=== PATIENT | male | born 1985 | race Caucasian/White ===

== ENCOUNTER 2022-09-25 03:16 | Emergency (ER) | payer OTHER ==
[~2022-09-25] VITALS: Ht 190.5 cm; Wt 163.0 kg
[2022-09-25] MEDS ORDERED: cefTRIAXone SOD 1,000 MG VL IM ONE (03:30)
[2022-09-25] MEDS ORDERED: DexAMETHasone SOD PHOS 10MG/1ML VIAL INJ IM ONE (03:30)
[2022-09-25 05:00] VITALS: BP 128/91
[2022-09-25] MEDS ORDERED: AMOX500T86 PO (05:24)
[2022-09-26] MEDS ORDERED: PROM2SYP2 PO ×5 (09:52→16:51)
[2022-09-26] MEDS ORDERED: AZIT500T66 PO ×4 (09:52→16:51)
[2022-09-26] MEDS ORDERED: PROM1SOL4 PO (17:58)
== END 2022-09-25 05:45 | disposition home or self-care (01) ==
LOC: ER 03:16
DX: J02.9 Acute pharyngitis, unspecified (principal); F17.210 Nicotine dependence, cigarettes, uncomplicated
CPT/HCPCS: 71045; 96372; 99284; J0696; J1100

== ENCOUNTER 2022-09-26 08:07 | Emergency (ER) | payer OTHER ==
[~2022-09-26] VITALS: Ht 190.5 cm; Wt 163.0 kg
[~2022-09-26 08:07] MED LIST: AMOX500T86 PO
[2022-09-26 08:33] VITALS: BP 144/55
[2022-09-26] MEDS ORDERED: KETOROLAC TROMETH 30 MG/ML 1ML VIAL IV ONE (08:45)
[2022-09-26] MEDS ORDERED: cefTRIAXone SOD 1,000 MG VL IM ONE (08:45)
[2022-09-26] MEDS ORDERED: SODIUM CHLORIDE 0.9% 500 ML IV ONE (08:45)
[2022-09-26] MEDS ORDERED: methylPREDNISolone SOD SUCC 125 MG/2 ML VL IV ONE (08:45)
[2022-09-26 09:14] LABS: Basophils # (auto) 0.1 10 ^3/uL (0-0.2); Eosinophils # (auto) 0.1 10 ^3/uL (0-0.8); Eosinophils % (auto) 0.5 % (0.0-7.0); Hematocrit 46.7 % (41.0-53.0); Hemoglobin 16.2 g/dL (13.5-17.5); Lymphocytes # (auto) 3.1 10 ^3/uL (0.4-5.4); Lymphocytes % (auto) 27.5 % (10.0-50.0); Mean Corpuscular Hemoglobin 30.1 pg (28.0-32.0); Mean Corpuscular Hgb Conc. 34.6 g/dL (32.0-36.0); Mean Corpuscular Volume 86.8 fL (80.0-100.0); Monocytes # (auto) 1.1 10 ^3/uL (0-1.3); Neutrophils # (auto) 6.9 10 ^3/uL (1.6-8.6); Nucleated Red Blood Cells % 0.1 %; Red Blood Cells 5.38 10^6/uL (4.5-5.90); Red Cell Distribution Width 14.6 % (11.8-14.3); White Blood Cell 11.3 10^3/uL (4.4-10.8)
[2022-09-26 09:35] LABS: BUN/Creatinine Ratio 10.8; Calcium 8.6 mg/dL (8.5-10.1); Potassium 3.3 mmol/L (3.5-5.1)
[2022-09-26] MEDS ORDERED: PROMETHAZINE W/CODEINE 5 ML ORAL SYRUP PO ONE (09:45)
[2022-09-26] MEDS ORDERED: PROM2SYP2 PO ×5 (09:52→16:51)
[2022-09-26] MEDS ORDERED: AZIT500T66 PO ×4 (09:52→16:51)
[2022-09-26] MEDS ORDERED: PROM1SOL4 PO (17:58)
== END 2022-09-26 10:07 | disposition home or self-care (01) ==
LOC: ER 08:07
DX: J20.9 Acute bronchitis, unspecified (principal); J03.90 Acute tonsillitis, unspecified; E66.01 Morbid (severe) obesity due to excess calories; Z68.41 Body mass index [BMI] 40.0-44.9, adult
CPT/HCPCS: 36415; 80048; 85025; 86308; 87070; 87880; 96361; 96372; 96374; 96375; 99284; J0696; J1885; J2930; J7040

== ENCOUNTER 2022-10-25 23:06 | Emergency (ER) | payer OTHER ==
[~2022-10-25] VITALS: Ht 190.5 cm; Wt 158.7 kg
[~2022-10-25 23:06] MED LIST changes: +AZIT500T66 PO; +PROM1SOL4 PO
[2022-10-26] MEDS ORDERED: HYDROcodone-ACET 10/325MG TAB PO ONE (06:00)
[2022-10-26] MEDS ORDERED: HYDR-4902 PO (06:31)
[2022-10-26 06:42] VITALS: BP 123/62
== END 2022-10-26 06:44 | disposition home or self-care (01) ==
LOC: ER 23:06
DX: S82.492A Other fracture of shaft of left fibula, initial encounter for closed fracture (principal); Z88.0 Allergy status to penicillin; S93.402A Sprain of unspecified ligament of left ankle, initial encounter; X50.0XXA Overexertion from strenuous movement or load, initial encounter; Y93.67 Activity, basketball; Y92.89 Other specified places as the place of occurrence of the external cause; Y99.8 Other external cause status
CPT/HCPCS: 73610

== ENCOUNTER 2023-01-03 00:27 | Emergency (ER) | payer OTHER ==
[~2023-01-03] VITALS: Ht 190.5 cm; Wt 157.3 kg
[~2023-01-03 00:27] MED LIST changes: +HYDR-4902 PO
[2023-01-03] MEDS ORDERED: ASPirin 81 mg TAB PO ONE (01:00)
[2023-01-03 01:22] LABS: Urine Bacteria NONE SEEN /hpf (None Seen); Urine Blood Negative /uL (Negative); Urine Specific Gravity 1.016 (1.001-1.035); Urine WBC 1 /hpf (0 - 3)
[2023-01-03 01:36] LABS: Alcohol, Urine < 3.0 mg/dL (0-10); Amphetamine Screen, Urine NEGATIVE (NEGATIVE); Barbiturate Scree,Urine NEGATIVE (NEGATIVE); Benzodiazephine Screen, Urine NEGATIVE (NEGATIVE); Cannabinoid Screen, Urine NEGATIVE (NEGATIVE); Cocaine Screen, Urine NEGATIVE (NEGATIVE); Opiate Scree,Urine NEGATIVE (NEGATIVE); Phencyclidine Screen, Urine NEGATIVE (NEGATIVE)
[2023-01-03 01:47] LABS: Basophils # (auto) 0.1 10 ^3/uL (0-0.2); Eosinophils # (auto) 0.3 10 ^3/uL (0-0.8); Eosinophils % (auto) 5.1 % (0.0-7.0); Hematocrit 48.6 % (41.0-53.0); Hemoglobin 16.9 g/dL (13.5-17.5); Lymphocytes # (auto) 1.9 10 ^3/uL (0.4-5.4); Mean Corpuscular Hemoglobin 30.3 pg (28.0-32.0); Mean Corpuscular Hgb Conc. 34.7 g/dL (32.0-36.0); Mean Corpuscular Volume 87.3 fL (80.0-100.0); Monocytes # (auto) 0.5 10 ^3/uL (0-1.3); Neutrophils # (auto) 3.3 10 ^3/uL (1.6-8.6); Neutrophils % (auto) 53.9 % (37.0-80.0); Nucleated Red Blood Cells % 0.2 %; Red Blood Cells 5.57 10^6/uL (4.5-5.90); Red Cell Distribution Width 14.3 % (11.8-14.3); White Blood Cell 6.1 10^3/uL (4.4-10.8)
[2023-01-03 01:52] LABS: BUN/Creatinine Ratio 8.3 (10.0-20.0); Calcium 9.1 mg/dL (8.5-10.1); Magnesium 2.3 mg/dL (1.6-2.6); Potassium 4.1 mmol/L (3.5-5.1)
[2023-01-03 01:55] LABS: Bilirubin, Total 0.4 mg/dL (0.2-1.0); Total Protein 7.2 g/dL (6.4-8.2)
[2023-01-03 02:06] LABS: INR 0.91 (0.9-1.15); Partial Thromboplastin Time 29.1 sec (24.6-33.4)
[2023-01-03 04:37] VITALS: BP 135/91
[2023-01-03] MEDS ORDERED: ACET-6 PO (04:48)
== END 2023-01-03 04:59 | disposition home or self-care (01) ==
LOC: ER 00:27
DX: R07.2 Precordial pain (principal); R06.02 Shortness of breath; F41.9 Anxiety disorder, unspecified; I10 Essential (primary) hypertension
CPT/HCPCS: 36415; 71045; 80053; 80307; 81001; 83605; 83690; 83735; 83880; 84484; 85025; 85379; 85610; 85730; 87040; 93005

== ENCOUNTER 2023-03-25 10:46 | Emergency (ER) | payer OTHER ==
[~2023-03-25] VITALS: Ht 190.5 cm; Wt 130.0 kg
[~2023-03-25 10:46] MED LIST changes: +ACET-6 PO
[2023-03-25 10:52] VITALS: BP 141/76; RESP 18; O2SAT 96
[2023-03-25 11:27] LABS: Urine WBC None Seen /hpf (0 - 3)
[2023-03-25 11:44] LABS: Urine Bacteria NONE SEEN /hpf (None Seen); Urine Blood Negative /uL (Negative); Urine Clarity Clear (Clear); Urine Protein, UAD Negative (Negative); Urine Specific Gravity 1.001 (1.001-1.035); Urine Urobilinogen Normal (Negative); Urine pH 7.5 (5.0-8.0)
[2023-03-25 11:45] VITALS: PULSE 70
[2023-03-25 11:51] LABS: Urine Color Straw (Yellow)
[2023-03-25 12:01] LABS: Basophils # (auto) 0.1 10 ^3/uL (0-0.2); Basophils % (auto) 0.9 % (0.0-2.0); Eosinophils # (auto) 0.1 10 ^3/uL (0-0.8); Eosinophils % (auto) 1.2 % (0.0-7.0); Hemoglobin 16.9 g/dL (13.5-17.5); Lymphocytes # (auto) 1.4 10 ^3/uL (0.4-5.4); Lymphocytes % (auto) 16.2 % (10.0-50.0); Mean Corpuscular Hgb Conc. 33.8 g/dL (32.0-36.0); Mean Corpuscular Volume 88.7 fL (80.0-100.0); Monocytes # (auto) 0.7 10 ^3/uL (0-1.3); Monocytes % (auto) 7.9 % (0.0-12.0); Neutrophils # (auto) 6.3 10 ^3/uL (1.6-8.6); Neutrophils % (auto) 73.8 % (37.0-80.0); Nucleated Red Blood Cells % 0.2 %; Red Blood Cells 5.64 10^6/uL (4.5-5.90); Red Cell Distribution Width 13.6 % (11.8-14.3); White Blood Cell 8.5 10^3/uL (4.4-10.8)
[2023-03-25 12:06] LABS: INR 1.01 (0.9-1.15); Partial Thromboplastin Time 33.3 SEC (24.5-34.5); Prothrombin Time 10.6 sec (9.3-11.8)
[2023-03-25 12:11] LABS: Alanine Aminotransferase 31 U/L (7-40); Albumin 4.9 g/dL (3.2-4.8); Alkaline Phosphatase 112 U/L (46-116); Anion Gap 9.7 (5-15); Aspartate Aminotransferase 23 U/L (13-40); BUN/Creatinine Ratio 10.3 (10.0-20.0); Bilirubin, Total 0.7 mg/dL (0.2-1.0); Blood Urea Nitrogen 11 mg/dL (9-23); Calcium 10.2 mg/dL (8.5-10.1); Carbon Dioxide 24.3 mmol/L (20-30); Chloride 105 mmol/L (98-107); Glucose 90 mg/dL (74-106); Magnesium 2.2 mg/dL (1.6-2.6); Potassium 3.8 mmol/L (3.5-5.1); Sodium 139 mmol/L (136-145); Total Protein 7.3 g/dL (5.7-8.2)
[2023-03-25] MEDS ORDERED: ASPirin 325 MG TAB PO ONE (12:15)
[2023-03-25 13:19] LABS: Amphetamine Screen, Urine Neg (NEGATIVE); Benzodiazephine Screen, Urine Neg (NEGATIVE)
[2023-03-25 13:20] LABS: Barbiturate Scree,Urine Neg (NEGATIVE); Cannabinoid Screen, Urine Neg (NEGATIVE); Cocaine Screen, Urine Neg (NEGATIVE); Opiate Scree,Urine Neg (NEGATIVE); Phencyclidine Screen, Urine Neg (NEGATIVE)
== END 2023-03-25 13:55 | disposition left against medical advice (07) ==
LOC: ER 10:46
DX: I24.9 Acute ischemic heart disease, unspecified (principal); F41.9 Anxiety disorder, unspecified; Z88.0 Allergy status to penicillin; Z79.1 Long term (current) use of non-steroidal anti-inflammatories (NSAID); Z79.899 Other long term (current) drug therapy
CPT/HCPCS: 36415; 71045; 80053; 80307; 81001; 82962; 83735; 83880; 84484; 85025; 85610; 85730; 93005

== ENCOUNTER 2025-01-19 10:54 | Outpatient (CLI) | payer BC ==
[2025-01-19 11:27] LABS: Urine Bacteria None Seen /hpf (None Seen)
[2025-01-19 11:55] LABS: Urine Blood Negative /uL (Negative); Urine Clarity Clear (Clear); Urine Color Yellow (Yellow); Urine Mucus FEW (None Seen); Urine Protein, UAD Negative (Negative); Urine Specific Gravity 1.027 (1.001-1.035); Urine Squamous Epithelial Cell None Seen /hpf (<5); Urine Urobilinogen Normal (Negative); Urine WBC < 1 /HPF (0-3); Urine pH 5.5 (5.0-9.0)
[2025-01-19 12:37] LABS: Prostate Specific Antigen 0.54 ng/mL (0.0-4.0)
[2025-01-19 12:39] LABS: % Iron Saturation 52.3 % (20-55)
[2025-01-19 12:41] LABS: Alanine Aminotransferase 38 U/L (7-40); Alkaline Phosphatase 85 U/L (46-116); Anion Gap 9 (5-15); Aspartate Aminotransferase 33 U/L (<34); BUN/Creatinine Ratio 13.5 (10.0-20.0); Bilirubin, Total 0.8 mg/dL (0.2-1.0); Blood Urea Nitrogen 15 mg/dL (9-23); Calcium 9.6 mg/dL (8.7-10.4); Carbon Dioxide 24 mmol/L (20-31); Chloride 106 mmol/L (98-107); Glucose 85 mg/dL (74-106); Sodium 139 mmol/L (136-145); Total Protein 7.3 g/dL (5.7-8.2); Uric Acid 8.7 mg/dL (3.7-9.2)
[2025-01-19 12:42] LABS: Free T3 3.74 pg/mL (2.3-4.2); T3 Total 1.09 ng/mL (0.60-1.81)
[2025-01-19 12:43] LABS: Free T4 (Free Thyroxine) 1.1 ng/dL (0.89-1.76)
[2025-01-19 12:44] LABS: Albumin 4.9 g/dL (3.2-4.8)
[2025-01-19 13:12] LABS: Cholesterol 188 mg/dL (< 200); HDL Cholesterol 33 mg/dL (40-59); LDL Cholesterol 131 mg/dL (< 100); Triglycerides 220 mg/dL (< 150)
== END 2025-01-19 17:00 | disposition home or self-care (01) ==
LOC: LAB 10:54
PROVIDERS: ATTEND Family Medicine
DX: E78.2 Mixed hyperlipidemia (principal); R73.03 Prediabetes; Z40.9 Encounter for prophylactic surgery, unspecified; Z00.00 Encounter for general adult medical examination without abnormal findings; Z79.899 Other long term (current) drug therapy
CPT/HCPCS: 36415; 80053; 80061; 81001; 82306; 82607; 83036; 83540; 83550; 83735; 84153; 84403; 84439; 84443; 84480; 84481; 84550

== ENCOUNTER 2025-01-26 11:32 | Outpatient (CLI) | payer BC ==
[2025-01-26 12:06] LABS: Basophils # (auto) 0.1 10 ^3/uL (0-0.2); Eosinophils # (auto) 0.2 10 ^3/uL (0-0.8); Eosinophils % (auto) 2.5 % (0.0-7.0); Hematocrit 48.2 % (41.0-53.0); Hemoglobin 16.7 g/dL (13.5-17.5); Lymphocytes # (auto) 1.9 10 ^3/uL (0.4-5.4); Mean Corpuscular Hemoglobin 30.3 pg (28.0-32.0); Mean Corpuscular Hgb Conc. 34.7 g/dL (32.0-36.0); Mean Corpuscular Volume 87.4 fL (80.0-100.0); Monocytes # (auto) 0.6 10 ^3/uL (0-1.3); Monocytes % (auto) 9.7 % (0.0-12.0); Neutrophils # (auto) 3.3 10 ^3/uL (1.6-8.6); Neutrophils % (auto) 54.8 % (37.0-80.0); Platelet Count (auto) 177 10^3/uL (140-450); Red Blood Cells 5.52 10^6/uL (4.5-5.90); White Blood Cell 6.1 10^3/uL (4.4-10.8)
[2025-01-26 12:24] LABS: Alanine Aminotransferase 30 U/L (7-40); Albumin 4.9 g/dL (3.2-4.8); Alkaline Phosphatase 88 U/L (46-116); Anion Gap 9 (5-15); Aspartate Aminotransferase 33 U/L (<34); BUN/Creatinine Ratio 12.8 (10.0-20.0); Bilirubin, Total 0.8 mg/dL (0.2-1.0); Blood Urea Nitrogen 16 mg/dL (9-23); Calcium 10.2 mg/dL (8.7-10.4); Carbon Dioxide 24 mmol/L (20-31); Chloride 107 mmol/L (98-107); Glucose 89 mg/dL (74-106); Potassium 4.1 mmol/L (3.5-5.1); Sodium 140 mmol/L (136-145); Total Protein 7.4 g/dL (5.7-8.2)
[2025-01-27 05:08] LABS: Hepatitis B Core Total Antibod Negative (Negative)
[2025-01-27 10:37] LABS: Hepatitis B Surface Antibody Positive (Negative); Hepatitis B Surface Antigen Negative (Negative); Hepatitis C Antibody Negative (Negative)
== END 2025-01-26 17:00 | disposition home or self-care (01) ==
LOC: LAB 11:32
PROVIDERS: ATTEND Dermatology
DX: L40.0 Psoriasis vulgaris (principal)
CPT/HCPCS: 36415; 80053; 85025; 86706; 86803; 87340; 87902

== ENCOUNTER 2025-05-31 05:45 | Emergency (ER) | payer BC ==
[~2025-05-31] VITALS: Ht 190.5 cm; Wt 149.9 kg
[2025-05-31 06:28] VITALS: BP 134/86; PULSE 77; RESP 18; TEMP 97.9
[2025-05-31 06:31] VITALS: O2SAT 98
--- NOTE | 2025-05-31 06:36 | ED.PDOC ---
Musculoskeletal HPI Comments A 40 YEAR OLD MALE PRESENTS TO THE ED WITH COMPLAINT OF ANKLE PAIN. PATIENT REPORTS THAT HE HAD TWISTED HIS RIGHT ANKLE AND FELL WHEN GOING DOWN STAIRS A FEW HOURS AGO, NOW EXPERIENCING PAIN AND SWELLING TO HIS RIGHT ANKLE. PATIENT DENIES HEAD INJURY, NUMBNESS, WEAKNESS, TINGLING, CHEST PAIN, ABDOMINAL PAIN, NAUSEA, VOMITING, HEADACHE, OR OTHER COMPLAINTS. NO OTHER SYMPTOMS OR MODIFYING FACTORS AT THIS TIME. PATIENT IS ALERT, ORIENTED X 4. Chief Complaint: Lower Extremity Time Seen by MD: 06:33 Primary Care Provider: ARIANE Malave Notes: Nurses Notes, Medications, Allergies Allergies: Coded Allergies: Penicillins (Verified Allergy, Unknown, 09/26/22) Uncoded Allergies: PENICILLIN (Allergy, Unknown, 09/25/22) Home Meds Active Scripts Ibuprofen (Ibuprofen) 800 Mg Tab, 1 TAB PO TID, #60 TAB Prov:BILLIE QIU 05/31/25 Acetaminophen (Acetaminophen Extra Stren) 500 Mg Tab, 500 MG PO QIDPRN for 10 Days, #40 TAB Prov:YUMIKO BALDERAS DO 01/03/23 Hydrocodone-Acetaminophen (Hydrocodone Bitartrate/AC 5-325 mg) 1 Tab Tab, 1 TAB PO TID PRN for 5 Days, #15 TAB Prov:CASSIE BARRON DO 10/26/22 Promethazine-Dm (Promethazine Dm 6.25-15 mg/5Ml) 1 Sofia Sofia, 5 ML PO TID, #180 ML Prov:BILLIE QIU 09/26/22 Azithromycin (Azithromycin) 500 Mg Tab, 1 TAB PO DAILY, #5 TAB Prov:BILLIE QIU 09/26/22 Amoxicillin & Pot Clavulanate (Augmentin) 500 Mg Tab, 1 TAB PO BID for 7 Days, #14 TAB Prov:GE TEJEDA MD 09/25/22 Information Source: Patient Mode of Arrival: Ambulatory Location: Right Extremity Location: Ankle Timing: Hours Prehospital treatment: None Severity: Moderate Able to Move Extremity: Yes Bear Weight: Limited, No Pain: Moderate Hand Dominance: Right Mechanism: Twisting Circumstances: Fall Onset of Symptoms: After Trauma Symptoms: Swelling, Pain DVT Risk Factors: NONE Associated signs and symptoms: Ankle pain Past Medical History PAST MEDICAL HISTORY: Anxiety Surgical History: Denies all surgeries Family History Family History: Reviewed,noncontributory to illness Social History Smoker: Non-Smoker Alcohol: Occasionally Drugs: Denies Drug Use Lives In: Home Constitutional: denies: chills, diaphoresis, fatigue, fever, malaise, sweats, weakness, others EENTM: denies: blurred vision, double vision, ear bleeding, ear discharge, ear drainage, ear pain, ear ringing, eye pain, eye redness, hearing loss, mouth pain, mouth swelling, nasal discharge, nose bleeding, nose congestion, nose pain, photophobia, tearing, throat pain, throat swelling, voice changes, others Respiratory: denies: cough, hemoptysis, orthopnea, SOB at rest, shortness of breath, SOB with excertion, stridor, wheezing, others Cardiovascular: denies: chest pain, dizzy spells, diaphoresis, Dyspnea on exertion, edema, irregular heart beat, left arm pain, lightheadedness, palpitations, PND, syncope, others Gastrointestinal: denies: abdomen distended, abdominal pain, blood streaked bowels, constipated, diarrhea, dysphagia, difficulty swallowing, hematemesis, melena, nausea, poor appetite, poor fluid intake, rectal bleeding, rectal pain, vomiting, others Genitourinary: denies: burning, dysuria, flank pain, frequency, hematuria, incontinence, penile discharge, penile sore, pain, testicle pain, testicle swelling, urgency, others Neurological: denies: dizziness, fainting, headache, left sided numbness, left sided weakness, numbness, paresthesia, pre-existing deficit, right sided numbness, right sided weakness, seizure, speech problems, tingling, tremors, weakness, others Musculoskeletal: reports: joint pain, joint swelling, others (RIGHT ANKLE PAIN AND SWELLING); denies: back pain, gout, muscle pain, muscle stiffness, neck pain Integumetry: denies: bruises, change in color, change in hair/nails, dryness, laceration, lesions, lumps, rash, wounds, others Allergic/Immunocompromised: denies: Difficulty Healing, Frequent Infections, Hives, Itching, others Hematologic/Lymphatic: denies: anemia, blood clots, easy bleeding, easy bruising, swollen glands, others Endocrine: denies: excessive hunger, excessive sweating, excessive thirst, excessive urination, flushing, intolerance to cold, intolerance to heat, unexplained weight gain, unexplained weight loss, others Psychiatric: denies: anxiety, bipolar disorder, depression, hopeless, panic disorder, schizophrenia, sleepless, suicidal, others All Other Systems: Reviewed and Negative Physical Exam General Appearance: No Apparent Distress, Obese HEENT: Normal ENT Inspection, PERRL/EOMI Neck: Full Range of Motion, Non-Tender, Normal, Normal Inspection Respiratory: Chest Non-Tender, Lungs Clear, No Accessory Muscle Use, No Respiratory Distress, Normal Breath Sounds Cardiovascular: No Edema, No JVD, No Murmur, No Gallop, Normal Peripheral Pulses, Regular Rate/Rhythm Breast Exam: Deferred Gastrointestinal: No Organomegaly, Non Tender, No Pulsatile Mass, Normal Bowel Sounds, Soft Genitalia: Deferred Pelvic: Deferred Rectal: Deferred Extremities: Decreased range of motion, No calf tenderness, Normal capillary refill, No pedal edema, Swelling (TENDERNESS AND SWELLING ON RIGHT LATERAL ANKLE, NO BONY TENDERNESS AND DEFORMITY. ), Tender (AND SWELLING ON RIGHT LATERAL ANKLE. ) Musculoskeletal : Apperance: Normal Neurologic: Alert, office cashier II-XII nml as Tested, No Motor Deficits, Normal Affect, Normal Mood, No Sensory Deficits Cerebellar Function: Normal Reflexes: Normal Skin: Dry, Normal Color, Warm Peripheral Pulses: 2+ carotid (R), 2+ carotid (L), 2+ dorsalis pedis (R), 2+ dorsalis pedis (L) Lymphatic: No Adenopathy Was a procedure done? Was a procedure done?: No Differential Diagnosis EXT Differential Diagnosis: Fracture, Sprain, Contusion, Strain, Bursitis X-Ray, Labs, Meds, VS Vital Signs Date Time Temp Pulse Resp B/P (MAP) Pulse Ox O2 Delivery O2 Flow Rate FiO2 05/31/25 06:31 98 Room Air* 0 21 05/31/25 06:28 97.9 77 18 134/86 (102) 98 97.9 05/31/25 05:49 98.2 91 20 116/94 95 98.2 Current Medications Medications (Trade) Dose Ordered Sig/Nguyễn Route Start Time Stop Time Status Last Admin Ketorolac Tromethamine (Toradol Injection) 60 mg ONCE ONCE IM 05/31/25 07:15 05/31/25 07:16 DC 05/31/25 07:[address] - [address] Ph: [phone] DIAGNOSTIC IMAGING Diagnostic Imaging Report : [id number] Signed PATIENT: GISELLE ROPER ACCT: [id number] UNIT: [id number] : 1985 LOC: ER ROOM / BED: / AGE / SEX: 40 / M ADM STATUS: REG ER SERVICE 9 ORDERING PHYSICIAN: BILLIE QIU PROCEDURE(s): RANKL - R ANKLE 3 VIEW REASON: INJURY ORDER NUMBER(s): [id number], ACCESSION NUMBER(s): [id number] PROCEDURE: Right ankle radiographs. INDICATION: INJURY TECHNIQUE: 3 views of the right ankle were obtained. COMPARISON: None. FINDINGS: There is no evidence of fracture or dislocation. Joint spaces are maintained. Marked lateral soft tissue swelling. IMPRESSION: 1. No fracture or dislocation. 2. Marked lateral soft tissue swelling. ATED BY: PILY PENA MD DICTATED DATE/TIME: 05/31/25728 SIGNED BY: PILY PENA MD SIGNED DATE/TIME: 05/31/25728 CC: X-Ray, Labs, Meds, VS Comment EXTERNAL MEDICAL RECORDS REVIEWED: [NONE] INDEPENDENT HISTORIANS: [NONE] SOCIAL DETERMINANTS OF HEALTH: [NONE] LABS ORDERED: NONE REVIEWED AND INTERPRETED RESULTS: RT ANKLE XR INTERPRETED BY ME. NO ACUTE FINDINGS. NO FRACTURES OR DISLOCATION. PENDING RADIOLOGIST REPORT. IMAGING ORDERED: RT ANKLE XR TREATMENTS ORDERED: TORADOL 60MG IM, ZULLY WRAP APPLIED TO RIGHT ANKLE AND CRUTCHES PROCEDURES PERFORMED: NONE CRITICAL CARE TIME: NONE I HAVE DISCUSSED THE PATIENT WITH THE ATTENDING PHYSICIAN, DR. WALLER, HE AGREES WITH THE PATIENT'S PLAN OF CARE AND DISPOSITION. BASED ON HISTORY OF PRESENT ILLNESS, AND PHYSICAL EXAM, PATIENT WILL BE DISCHARGED HOME. DISCUSSED PLAN FOR DISCHARGE HOME WITH RX [MOTRIN 800MG ]. MEDICATION WARNINGS GIVEN. SHARED DECISION MAKING: DISCUSSED WITH PATIENT THAT THEIR WORKUP WAS NORMAL. PATIENT INSTRUCTED TO FOLLOW UP WITH PRIMARY CARE PROVIDER IN 1-2 DAYS FOR RE- EVALUATION OF SYMPTOMS. PATIENT VERBALIZES UNDERSTANDING TO RETURN TO ED FOR NEW OR WORSENING SYMPTOMS OR IF FOLLOW UP WITH PCP CANNOT BE OBTAINED. PATIENT FEELS COMFORTABLE GOING HOME AT THIS TIME. ALL QUESTIONS ADDRESSED AT TIME OF DISCHARGE. Images Reviewed?: Images reviewed and evaluated by me Time of 1ST Reevaluation: 07:50 Reevaluation 1ST: Improved Patient Education/Counseling: Diagnosis, Treatment, Need For Follow Up Family Education/Counseling: Diagnosis, Treatment, No Family Present Medical Screening: No EMC Exist At This Time Departure 1 Departure Time of Disposition: 07:50 Impression: Primary Impression: Sprain of right ankle Qualified Codes: S93.401A - Sprain of unspecified ligament of right ankle, initial encounter Disposition: HOME / SELF CARE / HOMELESS Condition: Stable Additional Instructions: FOLLOW-UP WITH PCP IN 1 TO 2 DAYS. TAKE MEDICATIONS PRESCRIBED. RETURN TO ED FOR ANY NEW OR WORSENING SYMPTOMS. e-Prescriptions Ibuprofen (Ibuprofen) 800 Mg Tab 1 TAB PO TID, #60 TAB Prov: BILLIE QIU 05/31/25 Discharged With: Self Critical Care Note Critical Care Time?: No Stability Stability form required: No Heart Score Heart Score: Heart Score Response (Comments) Value History N/A 0 EKG N/A 0 Age N/A 0 Risk Factors N/A 0 Troponin N/A 0 Total 0 I personally scribed for BILLIE QIU ([email or web address]) on 05/31/25 at 06:36. Electronically submitted by Jah Rosa ([email or web address]). I personally scribed for BILLIE QIU ([email or web address]) on 05/31/25 at 07:22. Electronically submitted by Jah Rosa ([email or web address]). I personally scribed for BILLIE QIU ([email or web address]) on 05/31/25 at 07:32. Electronically submitted by Jah Rosa ([email or web address]). I personally scribed for BILLIE QIU ([email or web address]) on 05/31/25 at 07:33. Electronically submitted by Jah Rosa ([email or web address]). BILLIE QIU May 31, 2025 06:36
[2025-05-31] MEDS ORDERED: IBUP-1456 PO (07:24)
[2025-05-31] MEDS: KETOROLAC TROMETH 60MG/2ML VIAL IM ONE (07:27)
--- NOTE | 2025-05-31 07:31 | DVH ---
PROCEDURE: Right ankle radiographs. INDICATION: INJURY TECHNIQUE: 3 views of the right ankle were obtained. COMPARISON: None. FINDINGS: There is no evidence of fracture or dislocation. Joint spaces are maintained. Marked later al soft tissue swelling. IMPRESSION: 1. No fracture or dislocation. 2. Marked lateral soft tissue swelling.
== END 2025-05-31 07:34 | disposition home or self-care (01) ==
LOC: ER 05:48
DX: S93.401A Sprain of unspecified ligament of right ankle, initial encounter (principal); F10.90 Alcohol use, unspecified, uncomplicated; F41.9 Anxiety disorder, unspecified; Z79.899 Other long term (current) drug therapy; Z88.0 Allergy status to penicillin; Z79.1 Long term (current) use of non-steroidal anti-inflammatories (NSAID); W10.9XXA Fall (on) (from) unspecified stairs and steps, initial encounter; Y93.89 Activity, other specified; Y92.89 Other specified places as the place of occurrence of the external cause; Y99.8 Other external cause status; Y90.9 Presence of alcohol in blood, level not specified
CPT/HCPCS: 73610; 96372; 99283; J1885